=== PATIENT | male | born 1965 | race Caucasian/White ===

== ENCOUNTER 2024-07-30 11:38 | Day surgery (SDC) | payer BC ==
[2024-07-30] MEDS: Lactated Ringers 1,000 ML IV SCH (12:01)
[2024-07-30] MEDS: Sodium Chloride 0.9% 10 ML Syringe FLUSH PRN (12:01)
[2024-07-30] MEDS ORDERED: Midazolam 1 MG/ML 2 ML SDV ONE (12:21)
[2024-07-30] MEDS ORDERED: Propofol 200 MG/20 ML SDV ONE (12:21)
[2024-07-30 14:05] VITALS: BP 113/69; PULSE 67
== END 2024-07-30 14:37 | disposition home or self-care (01) ==
LOC: KA.SDS 11:38
PROVIDERS: ATTEND Surgery
DX: Z12.11 Encounter for screening for malignant neoplasm of colon (principal); D12.8 Benign neoplasm of rectum; K57.30 Diverticulosis of large intestine without perforation or abscess without bleeding
CPT/HCPCS: 00811; J2250; J2704; J7120